=== PATIENT | male | born 1980 | race African-American/Black ===

== ENCOUNTER 2025-03-07 15:51 | Emergency (ER) | payer MEDICAID, OTHER ==
[~2025-03-07] VITALS: Ht 182.9 cm; Wt 107.0 kg
[2025-03-07 18:19] VITALS: BP 131/79; TEMP 97.3; O2SAT 99
== END 2025-03-07 18:19 | disposition home or self-care (01) ==
LOC: ER 15:57
DX: M54.2 Cervicalgia (principal); M54.9 Dorsalgia, unspecified; M25.552 Pain in left hip; V79.59XA Passenger on bus injured in collision with other motor vehicles in traffic accident, initial encounter; Y93.89 Activity, other specified; Y92.410 Unspecified street and highway as the place of occurrence of the external cause; Y99.8 Other external cause status
CPT/HCPCS: 72040-TC; 72100-TC